=== PATIENT | female | born 1950 | race Caucasian/White ===

== ENCOUNTER 2020-12-12 15:23 | Inpatient (IN) | payer OTHER ==
[~2020-12-12] VITALS: Ht 167.6 cm; Wt 95.3 kg
[~2020-12-12 15:23] MED LIST: ACETAMINOPHEN-1 EAC1 PO; ALDACTONE25 MG PO; AMLODIPINE BESY10 MG PO; CLINDAMYCIN HC300 MG PO; DIGITEK125 MCG PO; HYDROCHLOROTH12.5 MG PO; JANTOVEN5 MG PO; KEFLEX500 MG PO; LASIX40 MG PO; LEVOFLOXACIN250 MG PO; MAGNESIUM400 M2 PO; METOPROLOL SUC100 MG PO; POTASSIUM CHLO20 ME1 PO; SERTRALINE HCL100 MG PO; TYLENOL #3 PO; WARFARIN SODIUM5 MG PO
[2020-12-12 17:20] LABS: HEMOGLOBIN 7.7 gm/dl (12.3-15.3); RED BLOOD COUNT 2.64 M/UL (4.00-5.10); WHITE BLOOD COUNT 6.9 K/UL (4.5-11.0)
[2020-12-12] MEDS ORDERED: VITAMIN D325 MC6 PO (20:22)
[2020-12-12] MEDS ORDERED: K-DUR TAB 20 M20 MEQ PO (20:24)
[2020-12-12] MEDS ORDERED: LASIX 40 MG TAB40 MG PO (20:24)
[2020-12-12] MEDS ORDERED: CENTRUM SILVER1 EAC4 PO (20:26)
[2020-12-12] MEDS ORDERED: DIGOX125 MCG PO (20:26)
[2020-12-12] MEDS ORDERED: NORVASC10 MG PO (20:27)
[2020-12-12] MEDS ORDERED: WARFARIN SODIUM4 MG PO (20:28)
[2020-12-12] MEDS ORDERED: FEOSOL325 MG PO (20:30)
[2020-12-12] MEDS ORDERED: HYDROCHLOROTH12.5 MG PO (20:31)
[2020-12-12] MEDS ORDERED: GLUCOSAMINE CH1 EACH PO (20:31)
[2020-12-12] MEDS ORDERED: MULTIVITAMIN1 EACH PO (20:35)
[2020-12-13 00:22] LABS: HEMOGLOBIN 7.6 gm/dl (12.3-15.3); RED BLOOD COUNT 2.52 M/UL (4.00-5.10)
[2020-12-13 03:11] LABS: HEMOGLOBIN 8.6 gm/dl (12.3-15.3)
[2020-12-13 05:30] LABS: HEMOGLOBIN 8.4 gm/dl (12.3-15.3); RED BLOOD COUNT 2.76 M/UL (4.00-5.10); WHITE BLOOD COUNT 8.4 K/UL (4.5-11.0)
[2020-12-13 20:30] LABS: HEMOGLOBIN 8.2 gm/dl (12.3-15.3); RED BLOOD COUNT 2.74 M/UL (4.00-5.10); WHITE BLOOD COUNT 9.9 K/UL (4.5-11.0)
[2020-12-14 03:42] LABS: HEMOGLOBIN 7.4 gm/dl (12.3-15.3); WHITE BLOOD COUNT 8.6 K/UL (4.5-11.0)
[2020-12-14 03:46] LABS: RED BLOOD COUNT 2.46 M/UL (4.00-5.10)
[2020-12-14 13:00] LABS: HEMOGLOBIN 7.6 gm/dl (12.3-15.3)
[2020-12-15 02:41] LABS: HEMOGLOBIN 7.9 gm/dl (12.3-15.3); RED BLOOD COUNT 2.61 M/UL (4.00-5.10); WHITE BLOOD COUNT 8.5 K/UL (4.5-11.0)
== END 2020-12-15 15:27 | disposition home or self-care (01) | DRG 377 ==
LOC: ER1 15:23 → CDU 19:14 → PROG CARE 19:14
PROVIDERS: Family Medicine; Internal Medicine Gastroenterology; ADMIT Internal Medicine
PROC: 30233N1 Transfusion of Nonautologous Red Blood Cells into Peripheral Vein, Percutaneous Approach (ICD-10-PCS; 2020-12-12)
PROC: 30233N1 Transfusion of Nonautologous Red Blood Cells into Peripheral Vein, Percutaneous Approach (ICD-10-PCS; 2020-12-13)
PROC: 0DBP8ZX Excision of Rectum, Via Natural or Artificial Opening Endoscopic, Diagnostic (ICD-10-PCS; principal; 2020-12-13 17:50)
PROC: 0DJ08ZZ Inspection of Upper Intestinal Tract, Via Natural or Artificial Opening Endoscopic (ICD-10-PCS; 2020-12-13 17:50)
DX: K62.5 Hemorrhage of anus and rectum (principal); R57.1 Hypovolemic shock; D62 Acute posthemorrhagic anemia; K57.30 Diverticulosis of large intestine without perforation or abscess without bleeding; Z20.822 Contact with and (suspected) exposure to COVID-19; I48.91 Unspecified atrial fibrillation; I12.9 Hypertensive chronic kidney disease with stage 1 through stage 4 chronic kidney disease, or unspecified chronic kidney disease; N18.30 Chronic kidney disease, stage 3 unspecified; K26.7 Chronic duodenal ulcer without hemorrhage or perforation; K29.80 Duodenitis without bleeding; I49.5 Sick sinus syndrome; M19.90 Unspecified osteoarthritis, unspecified site; G47.33 Obstructive sleep apnea (adult) (pediatric); K64.8 Other hemorrhoids; Z79.01 Long term (current) use of anticoagulants; Z95.2 Presence of prosthetic heart valve; Z79.899 Other long term (current) drug therapy; Z82.49 Family history of ischemic heart disease and other diseases of the circulatory system; Z88.8 Allergy status to other drugs, medicaments and biological substances; Z91.040 Latex allergy status; Z95.0 Presence of cardiac pacemaker
CPT/HCPCS: 36415; 36430; 80048; 80053; 82270; 85014; 85018; 85025; 85027; 85610; 85730; 86850; 86900; 86901; 86920; 87045; 87046; 93005; 94660; 94760; 96365; 96366; 96375; 96376; 99285; C9113; C9132; G0378; J1644; J2250; J2405; J7040; P9016; U0002

== ENCOUNTER 2020-12-30 21:20 | Emergency (ER) | payer OTHER ==
[~2020-12-30 21:20] MED LIST changes: +CENTRUM SILVER1 EAC4 PO; +DIGOX125 MCG PO; +FEOSOL325 MG PO; +GLUCOSAMINE CH1 EACH PO; +K-DUR TAB 20 M20 MEQ PO; +LASIX 40 MG TAB40 MG PO; +MULTIVITAMIN1 EACH PO; +NORVASC10 MG PO; +VITAMIN D325 MC6 PO; +WARFARIN SODIUM4 MG PO
== END 2020-12-31 01:15 | disposition home or self-care (01) ==
LOC: ER1 21:20
DX: S41.112A Laceration without foreign body of left upper arm, initial encounter (principal); S16.1XXA Strain of muscle, fascia and tendon at neck level, initial encounter; S30.0XXA Contusion of lower back and pelvis, initial encounter; I10 Essential (primary) hypertension; I48.91 Unspecified atrial fibrillation; W10.9XXA Fall (on) (from) unspecified stairs and steps, initial encounter
CPT/HCPCS: 70450; 72125; 72128; 72131; 73030; 73060; 99284

== ENCOUNTER → 2021-01-31 | Outpatient (CLI) | payer OTHER ==
[2021-01-31 12:21] LABS: HEMOGLOBIN 11.5 gm/dl (12.3-15.3); RED BLOOD COUNT 3.82 M/UL (4.00-5.10); WHITE BLOOD COUNT 6.8 K/UL (4.5-11.0)
== END ==
LOC: LAB 11:49
PROVIDERS: Physician Assistant
DX: M25.40 Effusion, unspecified joint (principal)
CPT/HCPCS: 36415; 80048; 84550; 85025

== ENCOUNTER → 2021-03-06 | Outpatient (CLI) | payer OTHER | LOC: MAMO 14:30 | DX: N64.4 Mastodynia (principal); R23.4 Changes in skin texture | CPT/HCPCS: 77066; G0279 ==

== ENCOUNTER → 2021-04-02 | Outpatient (CLI) | payer OTHER | LOC: LAB 11:21 | PROVIDERS: Internal Medicine Cardiovascular Disease | DX: I13.0 Hypertensive heart and chronic kidney disease with heart failure and stage 1 through stage 4 chronic kidney disease, or unspecified chronic kidney disease (principal); I50.32 Chronic diastolic (congestive) heart failure; N18.9 Chronic kidney disease, unspecified; R06.02 Shortness of breath; R60.9 Edema, unspecified; I48.91 Unspecified atrial fibrillation | CPT/HCPCS: 36415; 80048; 83880 ==

== ENCOUNTER → 2021-04-09 | Outpatient (CLI) | payer OTHER | LOC: LAB 11:40 | PROVIDERS: Internal Medicine Cardiovascular Disease | DX: I48.91 Unspecified atrial fibrillation (principal); I50.32 Chronic diastolic (congestive) heart failure; N18.9 Chronic kidney disease, unspecified; R06.02 Shortness of breath | CPT/HCPCS: 36415; 80048; 83880 ==

== ENCOUNTER → 2021-05-02 | Outpatient (CLI) | payer OTHER | LOC: RAD 08:30 | DX: T17.920A Food in respiratory tract, part unspecified causing asphyxiation, initial encounter (principal); R13.10 Dysphagia, unspecified | CPT/HCPCS: 74230; 92611-GN ==

== ENCOUNTER 2022-03-18 05:14 | Emergency (ER) | payer OTHER ==
[2022-03-18] MEDS ORDERED: ENDOCET 5-3251 EACH PO (07:58)
== END 2022-03-18 08:05 | disposition home or self-care (01) ==
LOC: ER1 05:14
DX: M25.551 Pain in right hip (principal); I12.9 Hypertensive chronic kidney disease with stage 1 through stage 4 chronic kidney disease, or unspecified chronic kidney disease; N18.9 Chronic kidney disease, unspecified; X58.XXXA Exposure to other specified factors, initial encounter; Y93.01 Activity, walking, marching and hiking; Y92.009 Unspecified place in unspecified non-institutional (private) residence as the place of occurrence of the external cause
CPT/HCPCS: 72170; 73552; 99283

== ENCOUNTER 2022-03-20 08:53 | Emergency (ER) | payer OTHER ==
[~2022-03-20 08:53] MED LIST changes: +ENDOCET 5-3251 EACH PO
[2022-03-20 09:25] LABS: HEMOGLOBIN 8.5 gm/dl (12.3-15.3); RED BLOOD COUNT 2.7 M/UL (4.00-5.10); WHITE BLOOD COUNT 19.6 K/UL (4.5-11.0)
== END 2022-03-20 12:40 | disposition short-term general hospital (02) ==
LOC: ER1 08:53
PROVIDERS: Emergency Medicine
DX: S06.5X9A Traumatic subdural hemorrhage with loss of consciousness of unspecified duration, initial encounter (principal); S36.892A Contusion of other intra-abdominal organs, initial encounter; N39.0 Urinary tract infection, site not specified; T45.511A Poisoning by anticoagulants, accidental (unintentional), initial encounter; E87.6 Hypokalemia; D63.1 Anemia in chronic kidney disease; N18.9 Chronic kidney disease, unspecified; I25.10 Atherosclerotic heart disease of native coronary artery without angina pectoris; Z95.0 Presence of cardiac pacemaker; Z86.73 Personal history of transient ischemic attack (TIA), and cerebral infarction without residual deficits; W19.XXXA Unspecified fall, initial encounter
CPT/HCPCS: 70450; 71045; 72125; 80053; 81001; 82550; 82553; 83605; 83690; 83880; 84484; 85025; 85610; 85730; 87040; 87077; 87086; 87186; 93005; 96372; 96374; 96375; 99285; J2185; J3430; J7168; U0002

== ENCOUNTER 2022-04-01 10:02 | Inpatient (IN) | payer OTHER ==
[~2022-04-01] VITALS: Ht 172.7 cm; Wt 77.1 kg
[~2022-04-01 10:02] MED LIST changes: -DIGOX125 MCG PO; +DIGOXIN125 MCG PO; +ENOXAPARIN80 MG/0.8 SQ; +MAG-OX 400 TAB400 MG PO; -MAGNESIUM400 M2 PO; -METOPROLOL SUC100 MG PO; +METOPROLOL TART25 MG PO
[2022-04-01 11:12] LABS: RED BLOOD COUNT 2.18 M/UL (4.00-5.10); WHITE BLOOD COUNT 14.8 K/UL (4.5-11.0)
[2022-04-01] MEDS ORDERED: ALLOPURINOL300 MG PO (16:18)
[2022-04-01] MEDS ORDERED: CYMBALTA60 MG PO (16:18)
[2022-04-01] MEDS ORDERED: VITAMIN B-125000 MC2 PO (16:20)
[2022-04-01 21:11] LABS: HEMOGLOBIN 8.2 gm/dl (12.3-15.3)
[2022-04-02 05:14] LABS: RED BLOOD COUNT 2.28 M/UL (4.00-5.10)
[2022-04-02 05:18] LABS: HEMOGLOBIN 6.7 gm/dl (12.3-15.3); WHITE BLOOD COUNT 10.9 K/UL (4.5-11.0)
[2022-04-02 15:23] LABS: HEMOGLOBIN 9.1 gm/dl (12.3-15.3)
[2022-04-03 05:30] LABS: HEMOGLOBIN 8.2 gm/dl (12.3-15.3); WHITE BLOOD COUNT 9.8 K/UL (4.5-11.0)
[2022-04-03 05:32] LABS: RED BLOOD COUNT 2.58 M/UL (4.00-5.10)
[2022-04-04 10:51] LABS: HEMOGLOBIN 8.9 gm/dl (12.3-15.3); RED BLOOD COUNT 2.73 M/UL (4.00-5.10)
[2022-04-04 10:52] LABS: WHITE BLOOD COUNT 6.6 K/UL (4.5-11.0)
== END 2022-04-04 22:06 | disposition short-term general hospital (02) | DRG 377 ==
LOC: ER1 10:02 → CDU 13:16 → CCU 16:46
PROVIDERS: Emergency Medicine; Internal Medicine Gastroenterology; Internal Medicine Pulmonary Disease; ADMIT Family Medicine
PROC: 30233N1 Transfusion of Nonautologous Red Blood Cells into Peripheral Vein, Percutaneous Approach (ICD-10-PCS; 2022-04-01)
PROC: B24BZZZ Ultrasonography of Heart with Aorta (ICD-10-PCS; 2022-04-01)
PROC: 0DC98ZZ Extirpation of Matter from Duodenum, Via Natural or Artificial Opening Endoscopic (ICD-10-PCS; 2022-04-02)
PROC: 093K7ZZ Control Bleeding in Nasal Mucosa and Soft Tissue, Via Natural or Artificial Opening (ICD-10-PCS; principal; 2022-04-02 11:56)
DX: K26.4 Chronic or unspecified duodenal ulcer with hemorrhage (principal); I50.23 Acute on chronic systolic (congestive) heart failure; D62 Acute posthemorrhagic anemia; Z20.822 Contact with and (suspected) exposure to COVID-19; I13.0 Hypertensive heart and chronic kidney disease with heart failure and stage 1 through stage 4 chronic kidney disease, or unspecified chronic kidney disease; I48.20 Chronic atrial fibrillation, unspecified; N18.30 Chronic kidney disease, stage 3 unspecified; E66.9 Obesity, unspecified; Z96.643 Presence of artificial hip joint, bilateral; F41.9 Anxiety disorder, unspecified; F32.A Depression, unspecified; D63.1 Anemia in chronic kidney disease; I08.3 Combined rheumatic disorders of mitral, aortic and tricuspid valves; I49.5 Sick sinus syndrome; R59.1 Generalized enlarged lymph nodes; R04.0 Epistaxis; K59.00 Constipation, unspecified; M19.90 Unspecified osteoarthritis, unspecified site; Z95.2 Presence of prosthetic heart valve; Z95.0 Presence of cardiac pacemaker; Z86.73 Personal history of transient ischemic attack (TIA), and cerebral infarction without residual deficits; Z79.01 Long term (current) use of anticoagulants; Z90.49 Acquired absence of other specified parts of digestive tract; Z80.9 Family history of malignant neoplasm, unspecified; Z80.8 Family history of malignant neoplasm of other organs or systems; Z82.3 Family history of stroke; Z82.49 Family history of ischemic heart disease and other diseases of the circulatory system; Z88.8 Allergy status to other drugs, medicaments and biological substances; Z91.040 Latex allergy status
CPT/HCPCS: ECHO; 36415; 36430; 71045; 80048; 80053; 82550; 82553; 83880; 84484; 85014; 85018; 85025; 85027; 85730; 86850; 86900; 86901; 86920; 93005; 93306; 94760; 96374; 99285; C9113; J0171; J1940; J2405; J2720; J7030; J7040; P9016; Q9967; U0002

== ENCOUNTER 2022-04-23 09:14 | Emergency (ER) | payer OTHER ==
[~2022-04-23] VITALS: Ht 170.2 cm; Wt 78.9 kg
[~2022-04-23 09:14] MED LIST changes: +ALLOPURINOL300 MG PO; +CYMBALTA60 MG PO; +ENOXAPARIN60 MG/0.6 SQ; -ENOXAPARIN80 MG/0.8 SQ; +VITAMIN B-125000 MC2 PO
[2022-04-23 10:10] LABS: HEMOGLOBIN 9.8 gm/dl (12.3-15.3); RED BLOOD COUNT 3.12 M/UL (4.00-5.10); WHITE BLOOD COUNT 6.7 K/UL (4.5-11.0)
[2022-04-23] MEDS ORDERED: WARFARIN SODIUM4 MG PO (15:59)
[2022-04-23] MEDS ORDERED: WARFARIN SODIUM1 MG PO (16:01)
[2022-04-23] MEDS ORDERED: TORSEMIDE20 MG PO (16:07)
[2022-04-23] MEDS ORDERED: TYLENOL EXTRA500 MG PO (16:08)
== END 2022-04-23 18:01 | disposition short-term general hospital (02) ==
LOC: ER1 09:14
PROVIDERS: Emergency Medicine
DX: K92.2 Gastrointestinal hemorrhage, unspecified (principal); I48.91 Unspecified atrial fibrillation; Z95.2 Presence of prosthetic heart valve; Z95.0 Presence of cardiac pacemaker
CPT/HCPCS: 71045; 80053; 83735; 84484; 85025; 85610; 85730; 93005; 96374; 96375; 99285; C9113; J2550

== ENCOUNTER → 2022-06-18 | Outpatient (CLI) | payer OTHER ==
[~2022-06-18] MED LIST changes: +TORSEMIDE20 MG PO; +TYLENOL EXTRA500 MG PO; +WARFARIN SODIUM1 MG PO
== END ==
LOC: LAB 12:07
DX: T82.857A Stenosis of other cardiac prosthetic devices, implants and grafts, initial encounter (principal); Z20.822 Contact with and (suspected) exposure to COVID-19
CPT/HCPCS: U0002